=== PATIENT | female | born 1985 | race Hispanic/Latino ===

== ENCOUNTER 2019-07-21 17:05 | Emergency (ER) | payer MEDICAID, SELFPAY ==
[2019-07-21] MEDS ORDERED: Bupivacaine 0.5% 10 ML VIAL ONE (17:30)
== END 2019-07-21 18:35 | disposition home or self-care (01) ==
LOC: ERS 17:05
DX: R51 Headache (principal); F32.9 Major depressive disorder, single episode, unspecified
CPT/HCPCS: 20552; J3490

== ENCOUNTER 2020-09-17 15:58 | Emergency (ER) | payer SELFPAY ==
[2020-09-17] MEDS ORDERED: Ketorolac Tromethamine 30 MG/ML VIAL ONE (17:28)
== END 2020-09-17 17:42 | disposition home or self-care (01) ==
LOC: ERS 15:58
DX: S61.215A Laceration without foreign body of left ring finger without damage to nail, initial encounter (principal); W45.8XXA Other foreign body or object entering through skin, initial encounter
CPT/HCPCS: 96372; J1885

== ENCOUNTER 2021-07-14 16:29 | Emergency (ER) | payer SELFPAY ==
[2021-07-15 16:07] LABS: SARS-CoV-2 PCR by NAA Not Detected (NotDetected)
== END 2021-07-14 18:03 | disposition home or self-care (01) ==
LOC: ERS 16:29
DX: J06.9 Acute upper respiratory infection, unspecified (principal); Z20.822 Contact with and (suspected) exposure to COVID-19; D64.9 Anemia, unspecified
CPT/HCPCS: 71045; U0003; U0005

== ENCOUNTER 2022-12-27 12:39 | Day surgery (SDC) | payer BC ==
[~2022-12-27 12:39] MED LIST: Ferumoxytol (NON ERSD) 510 MG in Sodium Chloride 0.9% 250 ML 150 ML IVPB SCH
[2022-12-27 15:51] VITALS: BP 125/71; TEMP 98.6
== END 2022-12-27 15:27 | disposition home or self-care (01) ==
LOC: ONC/OP 12:39
PROVIDERS: ATTEND Student in an Organized Health Care Education/Training Program
DX: D50.9 Iron deficiency anemia, unspecified (principal)
CPT/HCPCS: 96365; J7050; Q0138